=== PATIENT | female | born 1950 | race Two or more races ===

== ENCOUNTER 2017-11-22 07:52 | Outpatient (CLI) | payer OTHER ==
[~2017-11-22 07:52] MED LIST: COZAAR100 MG; MAXITROL EYE DRO5 ML OP; NOVOLOG100 U/M1; SYNTHROID50 MCG PO; TOUJEO SOL300 UNIT/1
== END 2017-11-22 07:57 | disposition home or self-care (01) ==
LOC: SONOGRAMA 07:52
DX: E03.8 Other specified hypothyroidism (principal); E04.1 Nontoxic single thyroid nodule

== ENCOUNTER 2018-12-25 08:02 | Outpatient (CLI) | payer OTHER | END 2018-12-25 08:05 | disposition home or self-care (01) | LOC: SONOGRAMA 08:02 | DX: E04.2 Nontoxic multinodular goiter (principal) ==

== ENCOUNTER 2019-06-28 12:39 | Inpatient (IN) | payer OTHER ==
[~2019-06-28] VITALS: Ht 170.2 cm; Wt 56.2 kg
[2019-06-28] MEDS ORDERED: MORGIDOX100 MG (13:37)
[2019-06-28] MEDS ORDERED: CEFDINIR300 MG (13:37)
[2019-06-28] MEDS ORDERED: HORIZANT300 MG (13:38)
== END 2019-07-23 13:35 | disposition home or self-care (01) | DRG 570 ==
LOC: ER 12:39 → SURH 17:37 → SURG 17:37 → SURH 07-01 12:06
PROVIDERS: Specialist; ADMIT Internal Medicine
PROC: B54DZZZ Ultrasonography of Bilateral Lower Extremity Veins (ICD-10-PCS; 2019-06-28)
PROC: 8E0ZXY6 Isolation (ICD-10-PCS; 2019-06-29)
PROC: CP1Z1ZZ Planar Nuclear Medicine Imaging of Musculoskeletal System, All using Technetium 99m (Tc-99m) (ICD-10-PCS; 2019-07-01)
PROC: 0JBP0ZZ Excision of Left Lower Leg Subcutaneous Tissue and Fascia, Open Approach (ICD-10-PCS; principal; 2019-07-04 17:00)
PROC: BQ3FZZZ Magnetic Resonance Imaging (MRI) of Left Lower Leg (ICD-10-PCS; 2019-07-08)
PROC: B44HZZZ Ultrasonography of Bilateral Lower Extremity Arteries (ICD-10-PCS; 2019-07-08)
DX: L97.828 Non-pressure chronic ulcer of other part of left lower leg with other specified severity (principal); J16.8 Pneumonia due to other specified infectious organisms; I82.493 Acute embolism and thrombosis of other specified deep vein of lower extremity, bilateral; B96.1 Klebsiella pneumoniae [K. pneumoniae] as the cause of diseases classified elsewhere; B95.2 Enterococcus as the cause of diseases classified elsewhere; B96.89 Other specified bacterial agents as the cause of diseases classified elsewhere; F43.29 Adjustment disorder with other symptoms; I70.293 Other atherosclerosis of native arteries of extremities, bilateral legs; E08.622 Diabetes mellitus due to underlying condition with other skin ulcer; E08.621 Diabetes mellitus due to underlying condition with foot ulcer; E03.8 Other specified hypothyroidism; I10 Essential (primary) hypertension; Z16.12 Extended spectrum beta lactamase (ESBL) resistance; J09.X2 Influenza due to identified novel influenza A virus with other respiratory manifestations; G89.18 Other acute postprocedural pain; G58.8 Other specified mononeuropathies; L97.528 Non-pressure chronic ulcer of other part of left foot with other specified severity

== ENCOUNTER 2019-08-29 12:26 | Emergency (ER) | payer OTHER ==
[~2019-08-29] VITALS: Ht 172.7 cm; Wt 55.3 kg
[~2019-08-29 12:26] MED LIST changes: +CEFDINIR300 MG; +HORIZANT300 MG; +MORGIDOX100 MG
== END 2019-08-29 20:58 | disposition home or self-care (01) ==
LOC: ER 12:26
DX: E11.65 Type 2 diabetes mellitus with hyperglycemia (principal); J11.1 Influenza due to unidentified influenza virus with other respiratory manifestations; B96.0 Mycoplasma pneumoniae [M. pneumoniae] as the cause of diseases classified elsewhere

== ENCOUNTER 2020-04-21 03:31 | Emergency (ER) | payer OTHER ==
[~2020-04-21] VITALS: Ht 172.7 cm; Wt 61.2 kg
[2020-04-21] MEDS ORDERED: KETO10TA2 PO (06:37)
== END 2020-04-21 06:40 | disposition home or self-care (01) ==
LOC: ER 03:31
DX: S01.111A Laceration without foreign body of right eyelid and periocular area, initial encounter (principal); W01.198A Fall on same level from slipping, tripping and stumbling with subsequent striking against other object, initial encounter; Y93.01 Activity, walking, marching and hiking; Y92.018 Other place in single-family (private) house as the place of occurrence of the external cause; Y99.8 Other external cause status

== ENCOUNTER 2020-06-09 11:14 | Emergency (ER) | payer OTHER ==
[~2020-06-09] VITALS: Ht 170.2 cm; Wt 63.0 kg
[~2020-06-09 11:14] MED LIST changes: +KETO10TA2 PO
[2020-06-09] MEDS ORDERED: ORPHENADRINE C100 MG PO (15:52)
[2020-06-09] MEDS ORDERED: PERCOCET 5-3251 EACH PO (15:52)
== END 2020-06-09 16:02 | disposition home or self-care (01) ==
LOC: ER 11:14
DX: M54.5 Low back pain (principal); M54.2 Cervicalgia; M25.511 Pain in right shoulder; M25.521 Pain in right elbow

== ENCOUNTER 2020-08-03 12:32 | Outpatient (CLI) | payer OTHER ==
[~2020-08-03 12:32] MED LIST changes: +ORPHENADRINE C100 MG PO; +PERCOCET 5-3251 EACH PO
== END 2020-08-03 12:39 | disposition home or self-care (01) ==
LOC: RAD 12:32
DX: M25.432 Effusion, left wrist (principal); M54.6 Pain in thoracic spine; M99.02 Segmental and somatic dysfunction of thoracic region; M99.03 Segmental and somatic dysfunction of lumbar region; M99.04 Segmental and somatic dysfunction of sacral region; M99.05 Segmental and somatic dysfunction of pelvic region; M54.5 Low back pain; M25.532 Pain in left wrist

== ENCOUNTER 2020-12-01 07:15 | Outpatient (CLI) | payer OTHER | END 2020-12-01 07:18 | disposition home or self-care (01) | LOC: NUCLEAR 07:15 | PROVIDERS: ATTEND Internal Medicine | DX: I73.9 Peripheral vascular disease, unspecified (principal); I87.2 Venous insufficiency (chronic) (peripheral); E11.65 Type 2 diabetes mellitus with hyperglycemia ==

== ENCOUNTER 2021-01-26 07:50 | Outpatient (CLI) | payer OTHER | END 2021-01-26 08:04 | disposition home or self-care (01) | LOC: TOM 07:50 | PROVIDERS: ATTEND Internal Medicine | DX: R10.9 Unspecified abdominal pain (principal) ==

== ENCOUNTER 2021-03-22 23:50 | Emergency (ER) | payer OTHER ==
[~2021-03-22] VITALS: Ht 172.7 cm; Wt 58.5 kg
[2021-03-23] MEDS ORDERED: HUMALOG100 UNIT/2 (00:09)
[2021-03-23] MEDS ORDERED: MELATONIN10 M2 PO (04:50)
[2021-03-23] MEDS ORDERED: IVERMECTIN3 MG PO (04:50)
[2021-03-23] MEDS ORDERED: ACETAMINOPHEN650 M2 PO (04:50)
[2021-03-23] MEDS ORDERED: AZITHROMYCIN500 MG PO (04:50)
[2021-03-23] MEDS ORDERED: VITAMIN C WIT1000 MG PO (04:50)
[2021-03-23] MEDS ORDERED: VITAMIN D3-ALO1 EACH PO (04:50)
[2021-03-23] MEDS ORDERED: COLCHICINE0.6 MG PO (04:50)
[2021-03-23] MEDS ORDERED: MUCINEX DM ER1 EAC1 PO (04:50)
== END 2021-03-23 05:26 | disposition home or self-care (01) ==
LOC: ER 23:50
DX: U07.1 COVID-19 (principal); B34.9 Viral infection, unspecified

== ENCOUNTER 2021-03-25 09:46 | Outpatient (CLI) | payer OTHER ==
[~2021-03-25 09:46] MED LIST changes: +ACETAMINOPHEN650 M2 PO; +AZITHROMYCIN500 MG PO; +COLCHICINE0.6 MG PO; +HUMALOG100 UNIT/2; +IVERMECTIN3 MG PO; +MELATONIN10 M2 PO; +MUCINEX DM ER1 EAC1 PO; +VITAMIN C WIT1000 MG PO; +VITAMIN D3-ALO1 EACH PO
== END 2021-03-25 15:55 | disposition home or self-care (01) ==
LOC: ASH CLINIC 09:46
PROVIDERS: ATTEND General Practice
DX: Z23 Encounter for immunization (principal); U07.1 COVID-19

== ENCOUNTER 2021-05-31 10:30 | Outpatient (CLI) | payer OTHER | END 2021-05-31 10:47 | disposition home or self-care (01) | LOC: MAMO-SONO 10:30 | PROVIDERS: ATTEND Internal Medicine | DX: R92.1 Mammographic calcification found on diagnostic imaging of breast (principal); Z12.31 Encounter for screening mammogram for malignant neoplasm of breast ==

== ENCOUNTER → 2021-12-23 13:06 | Outpatient (CLI) | payer OTHER | END | disposition home or self-care (01) | LOC: NUCLEAR 13:00 | PROVIDERS: ATTEND Obstetrics & Gynecology Gynecology | DX: M81.0 Age-related osteoporosis without current pathological fracture (principal) ==

== ENCOUNTER 2022-01-10 07:38 | Outpatient (CLI) | payer OTHER | END 2022-01-10 07:43 | disposition home or self-care (01) | LOC: SONOGRAMA 07:38 | PROVIDERS: ATTEND Internal Medicine Gastroenterology | DX: R10.13 Epigastric pain (principal) ==

== ENCOUNTER 2022-02-10 10:23 | Outpatient (CLI) | payer OTHER | END 2022-02-10 10:28 | disposition home or self-care (01) | LOC: TOM 10:23 | PROVIDERS: ATTEND Internal Medicine | DX: G45.9 Transient cerebral ischemic attack, unspecified (principal) ==

== ENCOUNTER 2022-06-08 13:17 | Outpatient (CLI) | payer OTHER | END 2022-06-08 13:21 | disposition home or self-care (01) | LOC: SONOGRAMA 13:17 | PROVIDERS: ATTEND Obstetrics & Gynecology Gynecology | DX: R10.2 Pelvic and perineal pain (principal) ==

== ENCOUNTER 2022-06-14 09:05 | Outpatient (CLI) | payer OTHER | END 2022-06-14 09:08 | disposition home or self-care (01) | LOC: NUCLEAR 09:05 | PROVIDERS: ATTEND Internal Medicine | DX: I73.9 Peripheral vascular disease, unspecified (principal); I87.9 Disorder of vein, unspecified; E11.65 Type 2 diabetes mellitus with hyperglycemia ==

== ENCOUNTER 2022-06-15 07:44 | Outpatient (CLI) | payer OTHER | END 2022-06-15 07:47 | disposition home or self-care (01) | LOC: NUCLEAR 07:44 | PROVIDERS: ATTEND Internal Medicine | DX: I73.9 Peripheral vascular disease, unspecified (principal); E11.65 Type 2 diabetes mellitus with hyperglycemia ==

== ENCOUNTER 2022-08-22 14:14 | Outpatient (CLI) | payer OTHER | END 2022-08-22 14:21 | disposition home or self-care (01) | LOC: MRI 14:14 | PROVIDERS: ATTEND Psychiatry & Neurology Clinical Neurophysiology | DX: I69.320 Aphasia following cerebral infarction (principal); I63.30 Cerebral infarction due to thrombosis of unspecified cerebral artery | CPT/HCPCS: 70551 ==

== ENCOUNTER → 2022-09-15 13:03 | Outpatient (CLI) | payer OTHER | END | disposition home or self-care (01) | LOC: LAB 13:03 | PROVIDERS: ATTEND Radiology Diagnostic Radiology | DX: R10.13 Epigastric pain (principal) ==

== ENCOUNTER 2022-09-20 07:07 | Outpatient (CLI) | payer OTHER | END 2022-09-20 07:13 | disposition home or self-care (01) | LOC: TOM 07:07 | PROVIDERS: ATTEND Internal Medicine Gastroenterology | DX: R10.13 Epigastric pain (principal) | CPT/HCPCS: 74177; Q9965 ==

== ENCOUNTER 2023-03-15 07:36 | Outpatient (CLI) | payer OTHER | END 2023-03-15 07:42 | disposition home or self-care (01) | LOC: TOM 07:36 | PROVIDERS: ATTEND Internal Medicine Gastroenterology | DX: K56.609 Unspecified intestinal obstruction, unspecified as to partial versus complete obstruction (principal); Z86.010 Personal history of colon polyps ==

== ENCOUNTER 2023-05-16 16:05 | Emergency (ER) | payer OTHER ==
[~2023-05-16] VITALS: Ht 172.7 cm; Wt 58.5 kg
[2023-05-16] MEDS ORDERED: ECOTRIN81 MG (16:35)
[2023-05-16] MEDS ORDERED: TOUJEO SOL300 UNIT/1 SQ (16:36)
== END 2023-05-16 18:25 | disposition home or self-care (01) ==
LOC: ER 16:05
DX: M43.6 Torticollis (principal); E11.9 Type 2 diabetes mellitus without complications; Z79.4 Long term (current) use of insulin; I10 Essential (primary) hypertension
CPT/HCPCS: 72040; 96372; 99283; J1885; J2360

== ENCOUNTER 2023-07-17 13:15 | Outpatient (CLI) | payer OTHER ==
[~2023-07-17 13:15] MED LIST changes: +ECOTRIN81 MG; +TOUJEO SOL300 UNIT/1 SQ
== END 2023-07-17 13:36 | disposition home or self-care (01) ==
LOC: MAMO-SONO 13:15
PROVIDERS: ATTEND Obstetrics & Gynecology Gynecology
DX: Z12.31 Encounter for screening mammogram for malignant neoplasm of breast (principal); N64.4 Mastodynia

== ENCOUNTER 2023-11-08 08:48 | Outpatient (CLI) | payer OTHER | END 2023-11-08 08:55 | disposition home or self-care (01) | LOC: SONOGRAMA 08:48 | PROVIDERS: ATTEND Physical Medicine & Rehabilitation | DX: M25.512 Pain in left shoulder (principal) ==

== ENCOUNTER → 2023-11-17 | Outpatient (CLI) | payer OTHER | END | disposition home or self-care (01) | LOC: MRI 13:49 | PROVIDERS: ATTEND Internal Medicine | DX: G45.9 Transient cerebral ischemic attack, unspecified (principal) | CPT/HCPCS: 70551 ==

== ENCOUNTER 2024-08-07 15:25 | Emergency (ER) | payer OTHER ==
[~2024-08-07] VITALS: Ht 172.7 cm; Wt 59.0 kg
[~2024-08-07 15:25] MED LIST changes: +CEPHALEXIN500 M1 PO
[2024-08-07] MEDS ORDERED: ARICEPT5 MG (15:57)
[2024-08-07] MEDS ORDERED: ISOSORBIDE DINIT5 MG PO (15:57)
[2024-08-07] MEDS ORDERED: KETOROLAC TROMETHAMINE 60 MG VIAL IM ONE (18:15)
== END 2024-08-07 18:36 | disposition home or self-care (01) ==
LOC: ER 15:27
DX: M79.662 Pain in left lower leg (principal); I10 Essential (primary) hypertension; E03.8 Other specified hypothyroidism; E11.9 Type 2 diabetes mellitus without complications; Z79.4 Long term (current) use of insulin

== ENCOUNTER 2024-08-08 07:16 | Outpatient (CLI) | payer OTHER ==
[~2024-08-08 07:16] MED LIST changes: +ARICEPT5 MG; +ISOSORBIDE DINIT5 MG PO
== END 2024-08-12 15:15 | disposition home or self-care (01) ==
LOC: MRI 07:16
DX: G30.1 Alzheimer's disease with late onset (principal)
CPT/HCPCS: 70551

== ENCOUNTER 2024-08-16 07:42 | Outpatient (CLI) | payer OTHER | END 2024-08-16 07:43 | disposition home or self-care (01) | LOC: NUCLEAR 07:42 | DX: I80.3 Phlebitis and thrombophlebitis of lower extremities, unspecified (principal); I87.2 Venous insufficiency (chronic) (peripheral) ==

== ENCOUNTER 2024-12-05 12:41 | Outpatient (CLI) | payer OTHER | END 2024-12-05 12:52 | disposition home or self-care (01) | LOC: SONOGRAMA 12:41 | PROVIDERS: ATTEND Otolaryngology | DX: R22.1 Localized swelling, mass and lump, neck (principal) ==